=== PATIENT | female | born 1955 | race Hispanic/Latino ===

== ENCOUNTER 2024-06-07 00:33 | Emergency (ER) | payer MEDICARE ==
[2024-06-07] MEDS ORDERED: HYDROcodone/Acetaminophen 5/325 mg Tablet ONE (01:53)
== END 2024-06-07 02:07 | disposition home or self-care (01) ==
LOC: BURERS 00:33
DX: S83.91XA Sprain of unspecified site of right knee, initial encounter (principal); I10 Essential (primary) hypertension; X50.1XXA Overexertion from prolonged static or awkward postures, initial encounter; Y93.E1 Activity, personal bathing and showering
CPT/HCPCS: 99283